=== PATIENT | female | born 1985 | race Caucasian/White ===

== ENCOUNTER 2019-03-05 12:11 | Emergency (ER) | payer BC ==
--- NOTE | 2019-03-05 12:21 | EDM.PDOC ---
ED HPI GENERAL MEDICAL PROBLEM - General Chief Complaint: ENT Problem Stated Complaint: SWOLLEN EARS, VOMITING Time Seen by Provider: 03/05/19 12:13 Source of Information: Reports: Patient History Limitations: Reports: No Limitations - History of Present Illness INITIAL COMMENTS - FREE TEXT/NARRATIVE: HISTORY AND PHYSICAL: History of present illness: Patient is a 33-year-old female who presents to the emergency room today with complaints of left ear pain and swelling. She states yesterday she was seen in the clinic and was given a prescription for Bactrim DS for an ear infection. She states last evening after taking her initial dose she started to have increased pain and swelling of the left ear along with nausea and vomiting. Patient denies any fever, chills, headache, change in vision, syncope or near syncope. Denies any chest pain, back pain, shortness of breath or cough. Denies any abdominal pain, diarrhea, constipation or dysuria. Review of systems: As per history of present illness and below otherwise all systems reviewed and negative. Past medical history: As per history of present illness and as reviewed below otherwise noncontributory. Surgical history: As per history of present illness and as reviewed below otherwise noncontributory. Social history: See social history for further information Family history: As per history of present illness and as reviewed below otherwise noncontributory. Physical exam: General: Well-developed and well-nourished 33-year-old female. Alert and oriented. Nontoxic appearing and in no acute distress. HEENT: Atraumatic, normocephalic, pupils equal and reactive bilaterally, negative for conjunctival pallor or scleral icterus, mucous membranes moist, Right TMs normal, left TM is erythematous with the ear canal swollen and tender with pulling on the pinna, no mastoid galina tenderness, no temporal tenderness. Her throat is clear, neck supple, nontender, trachea midline. No drooling or trismus noted. No meningeal signs. No hot potato voice noted. Lungs: Clear to auscultation, breath sounds equal bilaterally, chest nontender. Heart: S1S2, regular rate and rhythm without overt murmur Abdomen: Soft, nondistended, nontender. Skin: Intact, warm, dry. No lesions or rashes noted. Extremities: Atraumatic, moves all extremities per self without difficulty or deficits. Neurovascular unremarkable. Neuro: Awake, alert, oriented. Cranial nerves II through XII unremarkable. Cerebellum unremarkable. Motor and sensory unremarkable throughout. Exam nonfocal. Notes: Patient reports that she does not want to take the Bactrim DS and is requesting an alternative medication. Patient reports that she did not get much relief with the IV Toradol. Additional medications were ordered at this time. Patient's is at bedside and can drive her to home. Supportive care measures were reviewed and discussed. Voices understanding and is agreeable to plan of care. Denies any further questions or concerns at this time. Diagnostics: None Therapeutics: IV fluids, Zofran, Toradol, Ciprodex, Morphine Prescription: Ciprodex Phenergan w/ Cod (#4oz) Medrol Dosepak Impression: Otitis Externa Nausea and Vomiting Plan: 1. Avoid placing anything in the ear canal (fingers, q-tips, etc...) Use the Ciprodex drops as directed. 2. Tylenol and/or ibuprofen as needed for pain management. Phenergan with codeine for moderate to severe pain/nausea. This medication may cause drowsiness so do not take it while driving or needing to be functioning outside of the house. 3. Increase your oral fluids 4. Follow-up with your primary care provider and/or the learning disabilities teacher as we discussed. Return to the ED as needed and as discussed. Definitive disposition and diagnosis as appropriate pending reevaluation and review of above. left ear Pain Score (Numeric/FACES): 8 - Related Data Allergies Allergy/AdvReac Type Severity Reaction Status Date / Time amoxicillin Allergy Vomiting Verified 03/05/19 12:25 clavulanic acid Allergy Rash Verified 03/05/19 12:25 [From Augmentin] levofloxacin [From Levaquin] Allergy Rash Verified 03/05/19 12:25 Penicillins Allergy Vomiting Verified 03/05/19 12:25 CLEAR MEDICAL TAPE Allergy Swelling Uncoded 03/05/19 12:31 Home Meds: Home Meds Sulfamethoxazole/Trimethoprim [Bactrim Ds Tablet] 1 each PO BID 03/05/19 [ History] ED ROS ENT - Review of Systems Review Of Systems: ROS reveals no pertinent complaints other than HPI. ED EXAM, ENT - Physical Exam Exam: See Below (See dictation) Course - Vital Signs Last Recorded V/S: Last Vital Signs Temp 98.3 F 03/05/19 12:26 Pulse 97 03/05/19 12:26 Resp 18 03/05/19 12:26 BP 150/95 H 03/05/19 12:26 Pulse Ox 96 03/05/19 12:26 - Orders/Labs/Meds Orders: Active Orders 24 hr Category Date Time Status Ciprofloxacin/Dexamethasone [Ciprodex Otic Susp] Med 03/05/19 13:30 Active 1 ml EARLF BID Medication Orders Ciprofloxacin/Dexamethasone (Ciprodex Otic Susp) 1 ml EARLF BID MARISELA Meds: Medications Generic Name Dose Route Start Last Admin Trade Name Freq PRN Reason Stop Dose Admin Ciprofloxacin/Dexamethasone 1 ml 03/05/19 13:30 Ciprodex Otic Susp EARLF BID MARISELA Discontinued Medications Generic Name Dose Route Start Last Admin Trade Name Freq PRN Reason Stop Dose Admin Sodium Chloride 1,000 mls @ 999 mls/hr 03/05/19 12:33 03/05/19 12:42 Normal Saline IV 03/05/19 13:33 999 mls/hr STAT ONE Administration Ketorolac Tromethamine 30 mg 03/05/19 12:35 03/05/19 12:42 Toradol IVPUSH 03/05/19 12:36 30 mg ONETIME ONE Administration Methylprednisolone Sodium Succinate 125 mg 03/05/19 12:33 03/05/19 12:42 Solu-Medrol IVPUSH 03/05/19 12:34 125 mg ONETIME ONE Administration Morphine Sulfate 2 mg 03/05/19 13:25 03/05/19 13:34 Morphine IVPUSH 03/05/19 13:26 2 mg ONETIME ONE Administration Ondansetron HCl 4 mg 03/05/19 12:33 03/05/19 12:42 Zofran IVPUSH 03/05/19 12:34 4 mg ONETIME ONE Administration Departure - Departure Time of Disposition: 13:08 Disposition: Home, Self-Care 01 Clinical Impression: Otitis externa Qualifiers: Otitis externa type: unspecified type Chronicity: acute Laterality: left Qualified Code(s): H60.502 - Unspecified acute noninfective otitis externa, left ear Nausea and vomiting Qualifiers: Vomiting type: unspecified Vomiting Intractability: non-intractable Qualified Code(s): R11.2 - Nausea with vomiting, unspecified - Discharge Information Instructions: Otitis Externa, [id number] Referrals: PCP,Unknown [Primary Care Provider] - Forms: ED Department Discharge Additional Instructions: The following information is given to patients seen in the emergency department who are being discharged to home. This information is to outline your options for follow-up care. We provide all patients seen in our emergency department with a follow-up referral. The need for follow-up, as well as the timing and circumstances, are variable depending upon the specifics of your emergency department visit. If you don't have a primary care physician on staff, we will provide you with a referral. We always advise you to contact your personal physician following an emergency department visit to inform them of the circumstance of the visit and for follow-up with them and/or the need for any referrals to a consulting specialist. The emergency department will also refer you to a specialist when appropriate. This referral assures that you have the opportunity for follow-up care with a specialist. All of these measure are taken in an effort to provide you with optimal care, which includes your follow-up. Under all circumstances we always encourage you to contact your private physician who remains a resource for coordinating your care. When calling for follow-up care, please make the office aware that this follow-up is from your recent emergency room visit. If for any reason you are refused follow-up, please contact the [facility] Emergency Department at and asked to speak to the emergency department charge nurse. [facility] [address] [place] [id number] [place] [address] 1. Avoid placing anything in the ear canal (fingers, q-tips, etc...) Use the Ciprodex drops as directed. 2. Tylenol and/or ibuprofen as needed for pain management. Phenergan with codeine for moderate to severe pain/nausea. This medication may cause drowsiness so do not take it while driving or needing to be functioning outside of the house. 3. Increase your oral fluids 4. Follow-up with your primary care provider and/or the learning disabilities teacher as we discussed. Return to the ED as needed and as discussed. - My Orders Last 24 Hours: My Active Orders 03/05/19 13:30 Ciprofloxacin/Dexamethasone [Ciprodex Otic Susp] 1 ml EARLF BID - Assessment/Plan Last 24 Hours: My Active Orders 03/05/19 13:30 Ciprofloxacin/Dexamethasone [Ciprodex Otic Susp] 1 ml EARLF BID
[2019-03-05] MEDS ORDERED: methylPREDNISolone Sodium Succinate 125 MG/2 ML SDV IVPUSH ONE (12:33)
[2019-03-05] MEDS ORDERED: Sodium Chloride 0.9% 1,000 ML IV ONE (12:33)
[2019-03-05] MEDS ORDERED: Ondansetron 4 MG/2 ML SDV IVPUSH ONE (12:33)
[2019-03-05] MEDS ORDERED: Ketorolac 30 MG/ML SDV IVPUSH ONE (12:35)
[2019-03-05] MEDS ORDERED: Morphine 2 MG/ML Syringe IVPUSH ONE (13:25)
[2019-03-05] MEDS ORDERED: Ciprofloxacin/Dexamethasone 0.3-0.1% Otic Susp 7.5 ML Bottle EARLF SCH (13:30)
== END 2019-03-05 14:05 | disposition home or self-care (01) ==
LOC: MW.ED 12:11
DX: H60.502 Unspecified acute noninfective otitis externa, left ear (principal); R11.2 Nausea with vomiting, unspecified
CPT/HCPCS: 96361; 96374; 96375; 99283; J1885; J2270; J2405; J2930; J7040